=== PATIENT | female | born 1985 | race Caucasian/White ===

== ENCOUNTER 2016-10-19 21:07 | Emergency (ER) | payer MEDICAID, OTHER, SELFPAY ==
[2016-10-19] MEDS ORDERED: Albuterol/Ipratropium 3.0-0.5 MG/3 ML Neb Soln NEB ONE (22:52)
[2016-10-19] MEDS ORDERED: guaiFENesin/Dextromethorphan 100-10 MG/5 ML Soln 10 ML Cup PO ONE (22:53)
--- NOTE | 2016-10-19 23:00 | EDM.PDOC ---
ED HPI GENERAL MEDICAL PROBLEM - General Chief Complaint: General Stated Complaint: COUGH/DIZZY Time Seen by Provider: 10/19/16 22:55 Source of Information: Reports: Patient History Limitations: Reports: No limitations - History of Present Illness INITIAL COMMENTS - FREE TEXT/NARRATIVE: History of present illness: [31-year-old female comes in with three-day history of worsening cough of dark green sputum, and bursts of intractable coughing to the point of near vomiting. Patient indicates that there were 2 bouts of fever of unknown level secondary to lack of thermometer but that using Tylenol and cold baths was able to control her temperature.] Review of systems: As per history of present illness and below otherwise all systems reviewed and negative. Past medical history: As per history of present illness and as reviewed below otherwise noncontributory. Surgical history: As per history of present illness and as reviewed below otherwise noncontributory. Social history: No reported history of drug or alcohol abuse. Family history: As per history of present illness and as reviewed below otherwise noncontributory. Physical exam: HEENT: Atraumatic, normocephalic, pupils reactive, negative for conjunctival pallor or scleral icterus, mucous membranes moist oral pharyngeal erythema without white patchy exudate, throat clear, neck supple, nontender, trachea midline. Lungs: Clear to auscultation, breath sounds equal bilaterally, chest nontender. Heart: S1S2, regular, negative for clicks, rubs, or JVD. Abdomen: Soft, nondistended, nontender. Negative for masses or hepatosplenomegaly. Negative for costovertebral tenderness. Pelvis: Stable nontender. Genitourinary: Deferred. Rectal: Deferred. Extremities: Atraumatic, negative for cords or calf pain. Neurovascular unremarkable. Neuro: Awake, alert, oriented. Cranial nerves II through XII unremarkable. Cerebellum unremarkable. Motor and sensory unremarkable throughout. Exam nonfocal. Diagnostics: [CBC, CMP, chest x-ray] Therapeutics: [Duo Neb, guaifenesin with dextromethorphan,] Impression: [Bacterial pharyngitis/bronchitis] Plan: [Antibiotics, Tessalon pearls, albuterol inhaler with spacer] Definitive disposition and diagnosis as appropriate pending reevaluation and review of above. headache Pain Score (Numeric/FACES): 5 - Related Data Allergies Allergy/AdvReac Type Severity Reaction Status Date / Time No Known Allergies Allergy Verified 10/19/16 21:24 Home Meds: Home Meds Acetaminophen [Tylenol Extra Strength] 1,000 mg PO Q4H PRN #30 tab 04/06/14 [Rx] Amoxicillin/Clavulanate K [Augmentin 875 MG/125 MG] 1 tab PO Q12HR #20 tablet [Rx] Benzonatate [Tessalon Perles] 200 mg PO TID #30 cap 10/19/16 [Rx] Past Medical History HEENT History: Reports: None Cardiovascular History: Reports: None Respiratory History: Reports: None Gastrointestinal History: Reports: None Genitourinary History: Reports: None 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: Musculoskeletal History: Reports: None Neurological History: Reports: None Psychiatric History: Reports: Depression Endocrine/Metabolic History: Reports: None Hematologic History: Reports: None Immunologic History: Reports: None Oncologic (Cancer) History: Reports: None Dermatologic History: Reports: None - Infectious Disease History Infectious Disease History: Reports: Chicken pox Social & Family History - Tobacco Use Smoking Status *Q: Never Smoker Second Hand Smoke Exposure: No - Caffeine Use Caffeine Use: Reports: Soda - Alcohol Use Days Per Week of Alcohol Use: 0 - Recreational Drug Use Recreational Drug Use: No ED ROS GENERAL - Review of Systems Review Of Systems: See Below (History of present illness) ED EXAM, GENERAL - Physical Exam Exam: See Below (The history of present illness) Course - Vital Signs Last Recorded V/S: Last Vital Signs Temp 36.4 C 10/19/16 21:24 Pulse 84 10/19/16 21:24 Resp 16 10/19/16 21:24 BP 122/77 10/19/16 21:24 Pulse Ox 98 10/19/16 21:24 - Orders/Labs/Meds Orders: Active Orders 24 hr Category Date Time Status RT Aerosol Therapy [RC] ASDIRECTED Care 10/19/16 22:53 Active Chest 2V [CR] Stat Exams 10/19/16 22:52 Taken Meds: Medications Discontinued Medications Generic Name Dose Route Start Last Admin Trade Name Freq PRN Reason Stop Dose Admin Albuterol/Ipratropium 3 ml 10/19/16 22:52 10/19/16 23:04 Duoneb 3.0-0.5 Mg/3 Ml NEB 10/19/16 22:53 3 ml ONETIME ONE Administration Guaifenesin/Dextromethorphan 10 ml 10/19/16 22:53 10/19/16 23:27 Robitussin Dm PO 10/19/16 22:54 10 ml ONETIME ONE Administration Departure - Departure Time of Disposition: 23:49 Disposition: Home, Self-Care 01 Condition: good Clinical Impression: Acute bacterial pharyngitis, Bronchitis Prescriptions: Amoxicillin/Clavulanate K [Augmentin 875 MG/125 MG] 1 tab PO Q12HR #20 tablet Benzonatate [Tessalon Perles] 200 mg PO TID #30 cap Forms: ED Department Discharge Additional Instructions: The following information is given to patients seen in the emergency department who are being discharged to home. This information is to outline your options for follow-up care. We provide all patients seen in our emergency department with a follow-up referral. The need for follow-up, as well as the timing and circumstances, are variable depending upon the specifics of your emergency department visit. If you don't have a primary care physician on staff, we will provide you with a referral. We always advise you to contact your personal physician following an emergency department visit to inform them of the circumstance of the visit and for follow-up with them and/or the need for any referrals to a consulting specialist. The emergency department will also refer you to a specialist when appropriate. This referral assures that you have the opportunity for follow-up care with a specialist. All of these measure are taken in an effort to provide you with optimal care, which includes your follow-up. Under all circumstances we always encourage you to contact your private physician who remains a resource for coordinating your care. When calling for follow-up care, please make the office aware that this follow-up is from your recent emergency room visit. If for any reason you are refused follow-up, please contact the [facility] Emergency Department at and asked to speak to the emergency department charge nurse. Take medication as directed Followup with primary care provider one to 2 days Return to ED as needed as discussed - My Orders Last 24 Hours: My Active Orders 10/19/16 22:52 Chest 2V [CR] Stat 10/19/16 22:53 RT Aerosol Therapy [RC] ASDIRECTED - Assessment/Plan Last 24 Hours: My Active Orders 10/19/16 22:52 Chest 2V [CR] Stat 10/19/16 22:53 RT Aerosol Therapy [RC] ASDIRECTED
[2016-10-20 02:29] VITALS: BP 139/77
--- NOTE | 2016-10-20 16:20 | CR ---
EXAM DATE: 10/19/16 PATIENT'S AGE: 31 Patient: MELLO DEY Facility: [place], [place] Site . Site : 1985 Study: XRay Chest [id number] 11:40:20 PM Ordering Physician: Doctor Peacock Final Report: INDICATION: CHEST PAIN, SOB. PT STATE COUGHS AND SYMPTOMS FOR 1 WEEK TECHNIQUE: Chest radiograph 2 views COMPARISON: None FINDINGS: Cardiovascular and mediastinum: The cardiac silhouette is normal in appearance and size. Mediastinum is within normal limits. Lungs and pleural spaces: Both lungs are unremarkable in appearance. No sign of pleural effusion. No pneumothorax is seen. Bones and soft tissues: No significant findings. IMPRESSION: No acute cardiopulmonary disease seen. Dictated by: Raulito Mora MD @ 10/19/2016 23:43:25 (Electronic Signature) Report Signed by Proxy and Original Signed Document filed in the Medical Record. MTDD
== END 2016-10-19 23:57 | disposition home or self-care (01) ==
LOC: MW.ED 21:07
DX: J02.8 Acute pharyngitis due to other specified organisms (principal); B96.89 Other specified bacterial agents as the cause of diseases classified elsewhere; J40 Bronchitis, not specified as acute or chronic; F32.9 Major depressive disorder, single episode, unspecified
CPT/HCPCS: 71020; 71020-26; 94664; 99283; 99284; A9270-GY

== ENCOUNTER 2018-01-08 13:39 | Emergency (ER) | payer SELFPAY ==
[2018-01-08 13:54] VITALS: BP 139/107
--- NOTE | 2018-01-08 14:30 | EDM.PDOC ---
ED HPI GENERAL MEDICAL PROBLEM - General Chief Complaint: General Stated Complaint: BP MEDS Time Seen by Provider: 01/08/18 14:24 - History of Present Illness INITIAL COMMENTS - FREE TEXT/NARRATIVE: HISTORY AND PHYSICAL: History of present illness: The patient is a 32-year-old female who was being followed in the clinic by Dr. Madsen and has been reassigned and does not have an appointment until January 22 and ran out of her citalopram. She takes 40 mg a day and without it she gets mood swings and she says she has been having some of those but nothing exceptional. She has no systemic complaints and has no other issues other than needing a medication refill until she can be seen by the provider. The patient tells me she has been out of her medications for about a week and it confirmed that her last refill was on November 23 at [facility]. She says she thought she could make it until January 22 but she is feeling more mood swings and feels she should be back on her medications. Review of systems: As per history of present illness and below otherwise all systems reviewed and negative. Past medical history: As per history of present illness and as reviewed below otherwise noncontributory. Surgical history: As per history of present illness and as reviewed below otherwise noncontributory. Social history: No reported history of drug or alcohol abuse. Family history: As per history of present illness and as reviewed below otherwise noncontributory. Physical exam: General: Well-developed mildly overweight female who is nontoxic and vital signs have been reviewed by me HEENT: Atraumatic, normocephalic, negative for conjunctival pallor or scleral icterus, mucous membranes moist, throat clear, neck supple, nontender, trachea midline. Lungs: Clear to auscultation, breath sounds equal bilaterally, chest nontender. Heart: S1S2, regular, rate and rhythm no overt murmurs. Abdomen: Soft, nondistended, nontender. NABS Pelvis deferred Genitourinary: Deferred. Rectal: Deferred. Extremities: Atraumatic, full range of motion without defects or deficits Neurovascular unremarkable. Neuro: Awake, alert, oriented. Cranial nerves II through XII unremarkable. Gait unremarkable Motor and sensory unremarkable throughout. Exam nonfocal. Diagnostics: [] Therapeutics: [] Impression: Medication refill Definitive disposition and diagnosis as appropriate pending reevaluation and review of above. 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: Musculoskeletal History: Reports: None Neurological History: Reports: None Psychiatric History: Reports: Depression Endocrine/Metabolic History: Reports: None Hematologic History: Reports: None Immunologic History: Reports: None Oncologic (Cancer) History: Reports: None Dermatologic History: Reports: None - Infectious Disease History Infectious Disease History: Reports: None Social & Family History - Family History Family Medical History: Noncontributory - Tobacco Use Smoking Status *Q: Never Smoker - Caffeine Use Caffeine Use: Reports: Soda - Recreational Drug Use Recreational Drug Use: No ED ROS GENERAL - Review of Systems Review Of Systems: ROS reveals no pertinent complaints other than HPI. ED EXAM, GENERAL - Physical Exam Exam: See Below (See dictation) Course - Vital Signs Last Recorded V/S: Last Vital Signs Temp 36.7 C 01/08/18 13:50 Pulse 95 01/08/18 13:50 Resp 18 01/08/18 13:50 BP 139/107 H 01/08/18 13:50 Pulse Ox 95 01/08/18 13:50 Departure - Departure Time of Disposition: 14:29 Disposition: Home, Self-Care 01 Condition: Good Clinical Impression: Medication refill - Discharge Information Referrals: Ihsan Loyd MD [Primary Care Provider] - Additional Instructions: The following information is given to patients seen in the emergency department who are being discharged to home. This information is to outline your options for follow-up care. We provide all patients seen in our emergency department with a follow-up referral. The need for follow-up, as well as the timing and circumstances, are variable depending upon the specifics of your emergency department visit. If you don't have a primary care physician on staff, we will provide you with a referral. We always advise you to contact your personal physician following an emergency department visit to inform them of the circumstance of the visit and for follow-up with them and/or the need for any referrals to a consulting specialist. The emergency department will also refer you to a specialist when appropriate. This referral assures that you have the opportunity for followup care with a specialist. All of these measure are taken in an effort to provide you with optimal care, which includes your followup. Under all circumstances we always encourage you to contact your private physician who remains a resource for coordinating your care. When calling for followup care, please make the office aware that this follow-up is from your recent emergency room visit. If for any reason you are refused follow-up, please contact the [facility] emergency department at and ask to speak to the emergency department charge nurse. [facility] Primary care- Internal Medicine and Family [address] [id number] Please restart your medications and keep your appointment in the clinic on January 22 as scheduled. Return to ER as needed and as discussed
== END 2018-01-08 14:35 | disposition home or self-care (01) ==
LOC: MW.ED 13:39
DX: Z76.0 Encounter for issue of repeat prescription (principal); F32.9 Major depressive disorder, single episode, unspecified; Z79.899 Other long term (current) drug therapy
CPT/HCPCS: 99281